=== PATIENT | male | born 1985 | race Caucasian/White ===

== ENCOUNTER 2016-10-26 12:40 | Emergency (ER) | payer SELFPAY ==
[~2016-10-26] VITALS: Ht 182.9 cm; Wt 127.3 kg
[2016-10-26 12:48] VITALS: BP 139/84
[2016-10-26 12:56] LABS: GLUCOSE,POINT OF CARE 204 MG/DL (70-110)
[2016-10-26] MEDS ORDERED: SERT100T12 PO (12:57)
[2016-10-26] MEDS ORDERED: ATOR40TA28 PO (12:57)
[2016-10-26] MEDS ORDERED: GLIP10 PO (12:57)
[2016-10-26] MEDS ORDERED: OXYC20 PO (12:57)
[2016-10-26] MEDS ORDERED: GABA-533 PO (12:57)
[2016-10-26] MEDS ORDERED: METF850T2 PO (12:57)
[2016-10-26] MEDS ORDERED: ENAL20 PO (12:57)
== END 2016-10-26 14:14 | disposition left against medical advice (07) ==
LOC: EMS 12:44
DX: M79.646 Pain in unspecified finger(s) (principal); Z53.21 Procedure and treatment not carried out due to patient leaving prior to being seen by health care provider
CPT/HCPCS: 82962; 99281